=== PATIENT | female | born 1970 | race Caucasian/White ===

== ENCOUNTER 2023-06-09 12:02 | Emergency (ER) | payer MEDICARE, MEDICAID, SELFPAY ==
--- NOTE | 2023-06-09 12:05 | ED.DENTAL ---
HPI - Dental/Oral General Chief complaint: Dental/Oral Stated complaint: tooth infection Time Seen by Provider: 06/09/23 12:04 Source: patient Mode of arrival: ambulatory Limitations: no limitations History of Present Illness HPI Narrative: Justa is a 52-year-old female patient presenting with complaints of dental pain x 1 month. She reports symptoms got worse over the last week. Has been having dental pain for couple years now but is afraid to go to the dentist. Related Data Home Medications Medication Instructions Recorded Confirmed buspirone 5 mg tablet 5 mg 5XW 06/09/23 06/09/23 dulaglutide 3 mg/0.5 mL See Rx Instructions .Route .COMPLEX 06/09/23 06/09/23 subcutaneous pen injector (Trulicity) empagliflozin 25 mg tablet See Rx Instructions .Route .COMPLEX 06/09/23 06/09/23 (Jardiance) fluoxetine 40 mg capsule See Rx Instructions .Route .COMPLEX 06/09/23 06/09/23 lisinopril 20 See Rx Instructions .Route .COMPLEX 06/09/23 06/09/23 mg-hydrochlorothiazide 12.5 mg tablet metformin 500 mg tablet,extended See Rx Instructions .Route .COMPLEX 06/09/23 06/09/23 release 24 hr omeprazole 20 mg capsule,delayed See Rx Instructions .Route .COMPLEX 06/09/23 06/09/23 release pregabalin 75 mg capsule mg 06/09/23 rosuvastatin 20 mg tablet mg 06/09/23 Allergies Allergy/AdvReac Type Severity Reaction Status Date / Time No Known Allergies Allergy Verified 06/09/23 12:40 Review of Systems Review of Systems: Pertinent positives per HPI. Patient denies any fever, chills, rash, headache, visual changes, dizziness, cough, runny nose, sore throat, shortness of breath, chest pain, palpitations, nausea, vomiting, diarrhea, constipation, abdominal pain, or any urinary issues. PMFSH Comments At the time of my signature, I reviewed and agree with the nursing past medical, surgical, social, and family history. There is no relevant family history pertinent to the patient complaint. Exam Narrative: General: Well-developed, well nourished, in no apparent distress Head: Normocephalic, atraumatic Eyes: Pupils equally round and reactive to light bilaterally, EOM intact, sclera and conjunctive clear, no discharge, lids normal Ears: TMs intact and clear, ear canals clear, no drainage, grossly hearing normal. Nose: Nares patent, no discharge, no inflammation, no sinus tenderness. Mouth: Oropharynx without lesions or masses, very poor dentition, MMM. Dental infection to the 2nd bicuspid with indurated nonfluctuant abscess Neck: Supple, trachea midline, no enlargement of anterior or posterior cervical nodes, no thyroid masses or goiter palpable. Cardio: Regular rate and rhythm, s1 and s2 normal, no murmur appreciated. Resp: Clear to auscultation bilaterally anteriorly and posteriorly, no rhonchi, rales, wheezing or rubs Course Course Emergency Course: Portions of this record may have been created with voice recognition software. Level of Care: Express Care Visit Vital Signs Vital signs: Vital Signs Temperature 36.4 C L 06/09/23 12:11 Pulse Rate 90 06/09/23 12:11 Respiratory Rate 16 06/09/23 12:11 Blood Pressure 148/103 H 06/09/23 12:11 Pulse Oximetry 97 06/09/23 12:11 Oxygen Delivery Room Air 06/09/23 12:11 Temperature 36.4 C L 06/09/23 12:11 Pulse Rate 90 06/09/23 12:11 Respiratory Rate 16 06/09/23 12:11 Blood Pressure 148/103 H 06/09/23 12:11 Pulse Oximetry 97 06/09/23 12:11 Oxygen Delivery Room Air 06/09/23 12:11 Vital signs reviewed MDM - Dental/Oral MDM Narrative Medical decision making narrative: At the time of visit patient is resting comfortably on exam table. Patient appears to be nontoxic. i suspect patient has a dental abscess. Prescription for Augmentin was sent to the pharmacy. Rocephin 1 g IM given in the clinic today. Recommend follow-up with dentist as soon as possible. Supportive measures were discussed with the patient she voiced unde
[2023-06-09 12:11] VITALS: BP 148/103; PULSE 90; RESP 16; TEMP 36.4; O2SAT 97
[2023-06-09] MEDS: cefTRIAXone 1 GM, LIDOCAINE HCL 1% LOCAL INJ 2.1 ML IM (12:29)
== END 2023-06-09 12:53 | disposition home or self-care (01) ==
PROVIDERS: Emergency Provider Nurse Practitioner Family; PCP Internal Medicine
DX: K04.7 Periapical abscess without sinus (principal); I10 Essential (primary) hypertension; K21.9 Gastro-esophageal reflux disease without esophagitis; E11.9 Type 2 diabetes mellitus without complications; Z79.84 Long term (current) use of oral hypoglycemic drugs; F41.9 Anxiety disorder, unspecified; F32.A Depression, unspecified
CPT/HCPCS: 96372; 99213; G0463; J0696